=== PATIENT | male | born 1965 | race Caucasian/White ===

== ENCOUNTER 2016-12-06 08:38 | Emergency (ER) | payer MEDICARE ==
[~2016-12-06] VITALS: Ht 175.3 cm; Wt 102.1 kg
[~2016-12-06 08:38] MED LIST: CIPRO 500MG TA500 MG PO; MEDROL 4MG. DOSE4 MG PO
[2016-12-06] MEDS ORDERED: MEDROL 4MG. DOSE4 MG PO (09:09)
--- NOTE | 2016-12-06 09:10 | Emergency Room Report ---
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 N Clinical Suspician of Infection? N Mental Status: 1 - Regular (Normal Baseline) Sepsis Risk:Low Sepsis Risk Have you (or family members/close friends) recently traveled outside the [place]? N If Yes, where/when: Have you had exposure to infectious disease within the past month? N TB? Other? Specify: Left wrist pain since last night, does mowing. No other symptoms. 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 ALLERGIES Coded Allergies: Penicillins (12/06/16) Home Medications Active Scripts Methylprednisolone (Medrol Dose Radha) 4 MG PO UD #1 RADHA Prov: 08/21/08 Ciprofloxacin HCl (Cipro 500MG TAB) 500 MG PO BID 7 Days Prov: 08/21/08 History Medical History General CAD? No Angina: No [place]: No Hypertension? Yes Hyperlipidemia? No CHF? No DVT? No PE? No COPD? No Asthma? No Anemia? No GERD? No Gastric ulcers? No GI Bleed? No Hernia? No Thyroid Problems? No Hypothyroidism? No CVA? No Seizures? No Diabetes? No Renal Insuffiency? No End Stage Renal Disease? No UTI? No Stones? No GB Disease: No Nephritic Syndrome? No Asplenia? No Hepatitis? No Sickle Cell Disease? No Arthritis? Yes Migraines? No Cataracts? No Glaucoma? No MRSA? No HIV? No TB? No Anxiety? No Depression? No Cancer? No More? No Immunization Hx DT/Tetanus 1-4 YRS Surgical Hx Previous Surgery?N Social History Smoking Hx Smoker: Current Every Day Smoker Tobacco: Yes Type Cigarettes Packs/day < 1 Pack Alcohol Alcohol: Yes Review of Systems All Other Systems Reviewed and Negative Musculoskeletal see HPI Physical Exam Vital Signs Vital Signs Date Time Temp Pulse Resp B/P Pulse O2 O2 Flow FiO2 Ox Delivery Rate 12/06 0840 98.1 71 18 153/99 96 General Appearance normal appearance, WD/WN, no apparent distress Eye Exam - bilateral eye normal exam, bilateral eye PERRL, bilateral eye EOMI Respiratory Status No: respiratory distress. Cardiovascular no peripheral edema, normal peripheral pulses Extremities Left wrist pain on palpation with no evidence of trauma, primarily over medial aspect; no edema or redness; neg Tinel or Phalen's. FROM, fully sensate, well perfused digits with no discoloration or clubbing. No other joint involvement. Neurologic alert, normal exam, no motor/sensory deficits, oriented x 3 Skin intact, normal color, warm/dry Medical Decision Making LABS/Meds/Orders Pt receiving controlled substance in ED? No Departure Departure Time of Disposition 09 Disposition DC Home or Self Care(routine) Clinical Impression Primary Impression: Left wrist pain Condition STABLE Patient Instructions DI for Wrist Pain Additional Instructions Medrol, follow up with doctor of choice, list provided, 7-10 days for recheck. Tylenol as needed. Discharge Counseling Counseled pt/family regarding diagnosis, medications/RX, home care, follow up needs Prescriptions Current Visit Scripts Methylprednisolone (Medrol Dose Radha) 4 MG PO UD #1 RADHA TAKE DIRECTED ON PACKAGING ED Critical Care Critical Care No at 0909
[2016-12-06 09:43] VITALS: BP 145/86
--- OUTSIDE RECORDS SUMMARY | 2016-12-06 10:08 | External Medical Summary Rpt ---
Author Author , Organization [employer] Address Unknown Phone Unavailable Care Team Providers Care Tug Master Name Role Phone [facility] Unavailable Unavailable HOSPITAL, [facility], Unavailable Unavailable [facility], Unavailable Unavailable [facility] BAUTISTA GINO, BAUTISTA GINO Unavailable Unavailable TYLER T, TYLER T Unavailable Unavailable TYLER, T, TYLER, T Unavailable Unavailable THEODORE RHO, THEODORE Unavailable Unavailable RHO GURROLA NOLBERTO, GURROLA Unavailable Unavailable NOLBERTO [facility], Unavailable Unavailable [facility], Unavailable Unavailable [facility] GINO BAUTISTA MD Unavailable Unavailable CONSULTING SRV, GINO BAUTISTA MD CONSULTING SRV [facility], Unavailable Unavailable [facility], Unavailable Unavailable [facility] ELISEO, III BINH, Unavailable Unavailable ELISEO, III BINH [facility] Unavailable Unavailable SURGERY [facility], [facility] Unavailable [facility]available #493, [facility] #493 [facility] Unavailable Unavailable #493, [facility] # Unavailable Unavailable [id number], [facility] # [id number] [facility], WE[facility] G[facility] Unavailable Unavailable [facility], [facility] Unavailable Unavailable [facility], Unavailable Unavailable [facility] Purpose Continuity of Care Document - 04-06-2009 through 2016 Problems Code Diagnosis DOS Provider Status 22374 DIAB W/O 08-28-2010 [facility] COMP TYPE COMMUNITY II/UNS NOT HOSPITAL STATED UNCNTRL 80733 OTHER 08-28-2010 [facility] 26354 OBSTRUCTIVE 08-18-2010 PATIENT SLEEP AIDS INC APNEA 496 CHRONIC 08-13-2010 [facility] OBSTRUCTION HOSP NEC 89245 JAW PAIN 08-13-2010 [facility] 13411 NONSPECIFIC 08-13-2010 [facility] ABNORMAL [facility] ELECTROCARD HOSP IOGRAM 7962 ELEVATED BP 08-13-2010 [facility] READING [facility] WITHOUT DX HOSP HYPERTENSIO N V7283 OTHER 08-13-2010 [facility] SPECIFIED [facility] PRE-OPERATI HOSP VE EXAMINATION 5210 DENTAL 07-17-2010 THE IMPLANT CARIES & ORAL SURGERY C 5258 OTHER SPEC 07-17-2010 THE IMPLANT DISORDERS & ORAL TEETH&SUPPO SURGERY C RTING STRUCTURES 37600 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 55733 HYPOXEMIA 06-18-2010 [facility] V8534 BODY MASS 06-18-2010 [facility] 34.0-34.9 HOSPITAL ADULT 4011 ESSENTIAL 05-21-2010 GINO MICHELE KONG MD N, BENIGN CONSULTING SRV 2724 OTHER AND 05-13-2010 [facility] UNSPECIFIED HYPERLIPIDE AURA 81130 UNSPECIFIED 05-13-2010 [facility] CONJUNCTIVI TIS 4019 UNSPECIFIED 05-13-2010 [facility] ESSENTIAL HYPERTENSIO N V571 OTHER 05-02-2010 [facility] 68191 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 84767 SHORTNESS 05-01-2010 [facility] [place] [facility] 95029 ASTHMA, 04-28-2010 [facility] UNSPECIFIED STATUS 4928 OTHER 04-27-2010 [facility] EMPHYSEMA 7243 SCIATICA 04-27-2010 [facility] 7242 LUMBAGO 12-17-2009 [facility] 462 ACUTE 04-06-2009 [facility] 37123 FEVER 04-06-2009 [facility] Medications Na ND Rx Da Fi Fi Am Da Di Ph RX Ph St me C No te ll ll ou ys ag ar # ys at rm s nt no ma ic us Or Da si cy ia de te s n re d FL 68 04 04 0 30 30 WA 70 WE Ac UO 64 -0 -0 .0 L- 73 ST ti XE 50 5- 5- 00 MA 53 ve TI 13 20 20 RT 6 RI NE 05 11 11 CH 4 PH AR HC AR D L MA M 20 CY # MG 10 CA 04 PS 93 UL E QU 68 02 04 1 30 30 WA 70 WE Ac IN 18 -2 -0 .0 L- 67 ST ti AP 00 1- 4- 00 MA 58 ve RI 55 20 20 RT 8 RI L 80 11 11 CH 20 9 PH AR AR D MG MA M CY TA # BL ET 10 04 93 FL 68 03 03 0 7. 7 70 WE Ac UO 64 -2 -2 00 L- 72 ST ti XE 50 6- 6- 0 MA 24 ve TI 13 20 20 RT 0 RY NE 05 11 11 AN 4 PH B HC AR L MA 20 CY # MG 10 CA 04 PS 93 UL E FL 68 02 02 0 30 30 70 WE Ac UO 64 -2 -2 .0 L- 67 ST ti XE 50 1- 1- 00 MA 58 ve TI 13 20 20 RT 7 RI NE 05 11 11 CH 4 PH AR HC AR D L MA M 20 CY # MG 10 CA 04 PS 93 UL E QU 68 02 02 1 30 30 70 WE Ac IN 18 -2 -2 .0 L- 67 ST ti AP 00 1- 1- 00 MA 58 ve RI 55 20 20 RT 8 RI L 80 11 11 CH 20 9 PH AR AR D MG MA M CY TA # BL ET 10 04 93 00 02 02 0 24 3 WI 36 PE Ac 59 -0 -0 .0 LS 07 TE ti 10 3- 3- 00 ON 93 RS ve 34 20 20 ON [address] , 5 UG II I IN GI C LM AN P 00 02 02 0 24 3 WI 36 PE Ac 59 -0 -0 .0 LS 07 TE ti 10 3- 3- 00 ON 93 RS ve 34 20 20 ON [address] , 5 UG II I IN GI C LM AN P IB 53 01 01 0 30 8 WI 36 PE Ac UP 74 -2 -2 .0 LS 02 TE ti RO 60 8- 8- 00 ON 53 RS ve FE 46 20 20 ON N [address] , 60 5 UG II 0 I MG IN GI C LM TA AN BL P ET EN 60 01 01 0 30 5 HO 20 PE Ac DO 95 -2 -2 .0 ME 02 TE ti CE 10 8- 8- 00 TO 89 RS ve T 60 20 20 WN 8 ON 5- 28 11 11 , 32 5 PH II 5 AR I TA MA GI BL CY LM ET AN P FL 68 01 01 0 30 30 70 WE Ac UO 64 -1 -1 .0 L- 62 ST ti XE 50 8- 8- 00 MA 89 ve TI 13 20 20 RT 5 RI NE 05 11 11 CH 4 PH AR HC AR D L MA M 20 CY # MG 10 CA 04 PS 93 UL E 00 01 01 0 16 4 WI 35 MC Ac 59 -1 -1 .0 LS 90 CA ti 10 8- 8- 00 ON 02 UL ve 34 20 20 EY [address] 5 UG TH OR IN NB C ER RY AM AN DA 00 01 01 0 16 4 WI 35 MC Ac 59 -1 -1 .0 LS 90 CA ti 10 8- 8- 00 ON 02 UL ve 34 20 20 EY [address] -T 5 UG HO RN IN BE C RR Y AM AN DA FL 68 11 12 1 30 30 WA 70 WE Ac UO 64 -0 -1 .0 L- 54 ST ti XE 50 8- 7- 00 MA 17 ve TI 13 20 20 RT 2 RI NE 05 10 10 CH 4 PH AR HC AR D L MA M 20 CY # MG 10 CA 04 PS 93 UL E HY 16 11 11 0 20 5 WA [address] 71 -1 -1 .0 L- 54 LE ti OX 40 4- 4- 00 MA 89 ve YZ 08 20 20 RT 1 II IN 20 10 10 E 4 PH TH HC AR OM L MA 25 CY # MG 10 TA 04 BL 93 ET GE 61 11 11 0 5. 10 VA 70 DA Ac NT 31 -1 -1 00 L- 54 LE ti AM 40 4- 4- 0 MA 89 ve IC 63 20 20 RT 2 II IN 30 10 10 3 5 PH TH AR OM MG MA /M CY L # EY E 10 DR 04 OP 93 S 00 11 11 5 14 16 WA 70 WE Ac 59 -0 -0 .6 L- 54 ST ti 70 8- 8- 99 MA 16 ve 01 20 20 RT 9 RI 31 10 10 CH 4 PH AR AR D MA M CY # 10 04 93 FL 68 11 11 1 30 30 WA 70 WE Ac UO 64 -0 -0 .0 L- 54 ST ti XE 50 8- 8- 00 MA 17 ve TI 13 20 20 RT 2 RI NE 05 10 10 CH 4 PH AR HC AR D L MA M 20 CY # MG 10 CA 04 PS 93 UL E VE 00 10 11 00 18 16 WA 70 DA Ac NT 17 -1 -0 .0 L- 08 LE ti OL 30 8- 5- 00 MA 23 ve IN 68 20 20 RT 3 II 22 09 09 HF 0 PH TH A AR OM 90 MA CY MC G #4 IN 93 CORTEZ LE R CE 68 10 11 00 24 6 VA 70 DA Ac PH 18 -1 -0 .0 L- 08 LE ti AL 00 8- 5- 00 MA 23 ve EX 12 20 20 RT 2 II IN 20 09 09 1 PH TH 50 AR OM 0 MA MG CY CA #4 PS 93 UL E AZ 00 10 11 00 6. 5 WA 70 DA Ac IT 78 -1 -0 00 L- 08 LE ti HR 11 8- 5- 0 MA 23 ve OM 49 20 20 RT 7 II YC 66 09 09 IN 8 PH TH AR OM 25 MA 0 CY MG #4 TA 93 BL ET ME 00 10 11 00 21 6 WA 70 DA Ac TH 60 -1 -0 .0 L- 08 LE ti YL 34 8- 5- 00 MA 23 ve AL 59 20 20 RT 1 II ED 31 09 09 NI 5 PH TH SO AR OM LO MA NE CY 4 #4 MG 93 DO SE PK Procedures Procedure DOS Code Location Performer Comment HEMOGLOBI [address] ARIES A1C BASIC [address] CALCIUM TOTAL COLLECTIO 55146 [facility] V[facility]OUS 1 [facility] VENIPUNCT URE FILTER A7038 PATIENT PATIENT DISPBL 1 AIDS INC AIDS INC USED W/POS ARWAY PRESSURE DEVICE CUSHN A7032 PATIENT PATIENT NASAL 1 AIDS INC AIDS INC MASK INTERFACE REPLACEME NT ONLY EACH CONTINUOU E0601 PATIENT PATIENT S 1 AIDS INC AIDS INC POSITIVE AIRWAY PRESSURE DEVICE HEADGEAR A7035 PATIENT PATIENT USED 1 AIDS INC AIDS INC W/POSITIV E AIRWAY PRESSURE DEVICE NASL A7034 PATIENT PATIENT INTRFCE 1 AIDS INC AIDS INC POS ARWAY PRSS DEVC W/WO HEAD STRAP HUMDIFIR E0562 PATIENT PATIENT HEATED 1 AIDS INC AIDS INC USED W/POS ARWAY PRESSURE DEVICE TUBING A7037 PATIENT PATIENT USED WITH 1 AIDS INC AIDS INC POSITIVE AIRWAY PRESSURE DEVICE BLOOD 53059 [facility] COUNT 1 [facility] COMPLETE HOSP HOSP AUTOMATED ECG 44032 [facility] ROUTINE 1 [facility] SABIANISM ECG HOSP HOSP W/LEAST 12 LDS TRCG ONLY W/O I&R COLLECTIO 56918 [facility] N VENOUS 1 [facility] BLOOD HOSP HOSP VENIPUNCT URE FILTER A7038 PATIENT PATIENT DISPBL 1 AIDS INC AIDS INC USED W/POS ARWAY PRESSURE DEVICE CONTINUOU E0601 PATIENT PATIENT S 1 AIDS INC AIDS INC POSITIVE AIRWAY PRESSURE DEVICE DEEP D9220 THE JAYDE GOMES/ 1 IMPLANT & III BINH GENERAL ORAL ANESTHESI SURGERY C A-1ST 30 MINUTES ALVEOLOPL 85645 THE CHRISTY GOMES EACH 1 IMPLANT & III BINH QUADRANT ORAL SPECIFY SURGERY C ORTHOPANT 00871 THE THE OGRAM 1 IMPLANT & IMPLANT & ORAL ORAL SURGERY C SURGERY C POLYSOM 87259 GINO BAUTISTA BAUTISTA GNIO 6/>YRS 1 SLEEP CONSULTIN W/CPAP G SRV 4/> ADDL KALPANA ATTND CONTINUOU E0601 PATIENT PATIENT S 1 AIDS INC AIDS INC POSITIVE AIRWAY PRESSURE DEVICE POLYSOM 44694 [place] 6/>YRS 0 [facility] W/CPAP 4/> ADDL KALPANA ATTND BLOOD 01930 [place] GASES ANY 0 [facility] COMBINATI ON PH PCO2 PO2 CO2 HCO3 ARTERIAL 03838 [place] PUNCTURE 0 [facility] L BLOOD DX TUBING A7037 PATIENT PATIENT USED WITH 0 AIDS INC AIDS INC POSITIVE AIRWAY PRESSURE DEVICE HEADGEAR A7035 PATIENT PATIENT USED 0 AIDS INC AIDS INC W/POSITIV E AIRWAY PRESSURE DEVICE CONTINUOU E0601 PATIENT PATIENT S 0 AIDS INC AIDS INC POSITIVE AIRWAY PRESSURE DEVICE FILTER A7038 PATIENT PATIENT DISPBL 0 AIDS INC AIDS INC USED W/POS ARWAY PRESSURE DEVICE CUSHN A7032 PATIENT PATIENT NASAL 0 AIDS INC AIDS INC MASK INTERFACE REPLACEME NT ONLY EACH FULL FACE A7030 PATIENT PATIENT MASK 0 AIDS INC AIDS INC USED W/POS ARWAY PRESS DEVICE EA POLYSOM 39729 GINO BAUTISTA BAUTISTA GINO 6/>YRS 0 SLEEP CONSULTIN W/CPAP G SRV 4/> ADDL [place] ATTND POLYSOM 50424 [facility] 0 [facility] W/CPAP 4/> ADDL KAL[place]NA ATTND RADIOLOGI 13228 [facility] [place] [facility] EXAM 0 RADIOLOGY RHO CHEST 2 VIEWS FRONTAL&L ATERAL MRI 11085 [facility] [place] [facility] SPINAL 0 RADIOLOGY NOLBERTO CANAL LUMBAR W/O CONTRAST MATERIAL SPACR A4627 [facility] 0 PHARMACY PHARMACY OR W/WO #493 #493 MASK W/METRD DOSE INHAL ECG 35251 [facility] ROUTINE 0 ECG W/LEAST 12 LDS W/I&R PRESSURIZ 82552 [facility] ED/NONPRE 0 SSURIZED INHALATIO N TREATMENT HEPATIC 07373 MAN [facility] FUNCTION 0 CO [facility] COLLECTIO 47654 MAN [facility] N VENOUS 0 CO [facility] VENIPUNCT URE Encounters Encounter Start End Date Code Location Performer Type Date [facility] C[facility]TRAL - 1 1 [facility] [place] - 0 0 [facility] T OFFICE 35196 GINO BAUTISTA [facility] 0 MD T NEW 45 CONSULTIN MINUTES G SRV OFFICE 02893 [facility] 0 0 T VISIT 15 MINUTES EMERGENCY 36910 [facility] 0 0 EMERGENCY DEPARTMEN SERVICES T VISIT MODERATE SEVERITY HOSPITAL [place] - 0 0 [facility] T OFFICE 74062 [facility] 0 0 T NEW 30 MINUTES HOSPITAL MAN - 0 0 [facility] T EMERGENCY 47919 [facility], T 9 9 [facility] EMERGENCY T VISIT PHYS INC HIGH/URGE NT SEVERITY
--- OUTSIDE RECORDS SUMMARY | 2016-12-06 10:08 | External Medical Summary Rpt ---
Author Author , Organization [employer] Address Unknown Phone Unavailable Care Team Providers Care Seamer Elastic Band Name Role Phone [facility] Un[facility] Un[facility], Unavailable Unavailable [facility] BAUTISTA GINO, BAUTISTA GINO Unavailable Unavailable TYLER T, TYLER T Unavailable Unavailable TYLER, T, TYLER, T Unavailable Unavailable THEODORE RHO, THEODORE Unavailable Unavailable RHO GURROLA NOLBERTO, GURROLA Unavailable Unavailable NOLBERTO [facility], Unavailable Unavailable [facility], Unavailable Unavailable [facility] GINO BAUTISTA MD Unavailable Unavailable CONSULTING [...] PHARMACY #493 [facility] # Unavailable Unavailable [id number], [facility] # [id number] [facility], WEST GER[facility]IMO Unavailable Unavailable [facility], WE[facility] Unavailable Unavailable [facility], Unavailable Unavailable [facility] Purpose Continuity of Care Document - 04-06-2009 through 2016 Problems Code Diagnosis DOS Provider Status 12251 DIAB W/O 08-28-2010 [facility] COMP TYPE COMMUNITY II/UNS NOT HOSPITAL STATED UNCNTRL 58055 OTHER 08-28-2010 [facility] 04701 OBSTRUCTIVE 08-18-2010 PATIENT SLEEP AIDS INC APNEA 496 CHRONIC 08-13-2010 [facility] OBSTRUCTION HOSP NEC 68940 JAW PAIN 08-13-2010 [facility] 45660 NONSPECIFIC 08-13-2010 [facility] ABNORMAL [facility] ELECTROCARD HOSP IOGRAM 7962 ELEVATED BP 08-13-2010 [facility] READING [facility] WITHOUT DX HOSP HYPERTENSIO N V7283 OTHER 08-13-2010 [facility] SPECIFIED [facility] PRE-OPERATI HOSP VE EXAMINATION 5210 DENTAL 07-17-2010 THE IMPLANT CARIES & ORAL SURGERY C 5258 OTHER SPEC 07-17-2010 THE IMPLANT DISORDERS & ORAL TEETH&SUPPO SURGERY C RTING STRUCTURES 65443 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 83871 HYPOXEMIA 06-18-2010 [facility] V8534 [place] 06-18-2010 [facility] 34.0-34.9 HOSPITAL ADULT 4011 ESSENTIAL 05-21-2010 GINO MICHELE KONG MD N, BENIGN CONSULTING SRV 2724 OTHER AND 05-13-2010 [facility] UNSPECIFIED HYPERLIPIDE AURA 11735 UNSPECIFIED 05-13-2010 [facility] CONJUNCTIVI TIS 4019 UNSPECIFIED 05-13-2010 [facility] ESSENTIAL HYPERTENSIO N V571 OTHER 05-02-2010 [facility] 59323 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 10 [place] 70 DA Ac NT 31 -1 -1 [...] CE 68 10 11 00 24 6 [place] 70 DA Ac PH 18 -1 -0 [...] Procedure DOS Code Location Performer Comment HEMOGLOBI [address] ARIES A1C BASIC [address] CALCIUM TOTAL COLLECTIO 75755 [facility] VENOUS 1 [facility] VENIPUNCT URE FILTER A7038 PATIENT PATIENT DISPBL [...] AIDS INC POSITIVE AIRWAY PRESSURE DEVICE BLOOD 15419 [facility] COUNT 1 [facility] COMPLETE HOSP HOSP AUTOMATED ECG 95747 [facility] ROUTINE 1 [facility] ECG HOSP HOSP W/LEAST 12 LDS TRCG ONLY W/O I&R COLLECTIO 30890 [facility] N VENOUS 1 [facility] BLOOD HOSP HOSP VENIPUNCT URE FILTER A7038 PATIENT PATIENT DISPBL 1 AIDS INC AIDS INC USED W/POS ARWAY PRESSURE DEVICE CONTINUOU E0601 PATIENT PATIENT S 1 AIDS INC AIDS INC POSITIVE AIRWAY PRESSURE DEVICE DEEP D9220 THE JAYDE GOMES/ 1 IMPLANT & III BINH GENERAL ORAL ANESTHESI SURGERY C A-1ST 30 MINUTES ALVEOLOPL 66746 THE CHRISTY GOMES EACH 1 IMPLANT & III BINH QUADRANT ORAL SPECIFY SURGERY C ORTHOPANT 81484 THE THE OGRAM 1 IMPLANT & IMPLANT & ORAL ORAL SURGERY C SURGERY C POLYSOM 67283 GINO BAUTISTA BAUTISTA GINO 6/>YRS 1 SLEEP CONSULTIN W/CPAP G SRV 4/> ADDL KALPANA ATTND CONTINUOU E0601 PATIENT PATIENT S 1 AIDS INC AIDS INC POSITIVE AIRWAY PRESSURE DEVICE POLYSOM 46501 [place] 6/>YRS 0 [facility] W/CPAP 4/> ADDL K[place] ATTND BLOOD 07452 [place] GASES ANY 0 [facility] COMBINATI ON PH PCO2 PO2 CO2 HCO3 ARTERIAL 19033 [place] PUNCTURE 0 [facility] L BLOOD DX TUBING A7037 PATIENT PATIENT [...] USED W/POS ARWAY PRESS DEVICE EA POLYSOM 08439 GINO BAUTISTA BAUTISTA GINO 6/>YRS 0 SLEEP CONSULTIN W/CPAP G SRV 4/> ADDL [place] ATTND POLYSOM 04003 [facility]RS 0 [facility] W/CPAP 4/> ADDL [place] ATTND RADIOLOGI 44234 [facility] [place] [facility] EXAM 0 RADIOLOGY RHO CHEST 2 VIEWS FRONTAL&L ATERAL MRI 05255 [facility] [place] [facility] SPINAL 0 RADIOLOGY NOLBERTO CANAL LUMBAR W/O CONTRAST MATERIAL SPACR A4627 [facility]RESRV 0 PHARMACY PHARMACY OR W/WO #493 #493 MASK W/METRD DOSE INHAL ECG 74836 [facility] ROUTINE 0 ECG W/LEAST 12 LDS W/I&R PRESSURIZ 41580 [facility] ED/NONPRE 0 SSURIZED INHALATIO N TREATMENT HEPATIC 72043 MAN [facility] FUNCTION 0 CO [facility] COLLECTIO 55408 MAN [place] N VENOUS 0 CO [facility] VENIPUNCT URE Encounters Encounter Start End Date Code Location Performer Type Date [facility] CENTRAL - 1 1 [facility] [place] - 0 0 [facility] T OFFICE 65030 GINO BAUTISTA BAUTISTA G[facility] MD T NEW 45 CONSULTIN MINUTES G SRV OFFICE 21462 [facility] 0 0 T VISIT 15 MINUTES EMERGENCY 40144 [facility] 0 0 EMERGENCY DEPARTMEN SERVICES T VISIT MODERATE SEVERITY [facility]OSP[facility] [place] - 0 0 [facility] OFF[facility] 68003 [facility] 0 0 T NEW 30 MINUTES HOSPITAL [facility] - 0 0 [facility] T EMERGENCY 09891 [facility] 9 9 [facility] EMERGENCY T VISIT PHYS INC HIGH/URGE NT SEVERITY
--- OUTSIDE RECORDS SUMMARY | 2016-12-06 10:10 | External Medical Summary Rpt ---
Author Author , Organization [employer] Address Unknown Phone Unavailable Care Team Providers Care Post Form Remover Name Role Phone [facility] Unavailable Unavailable HOSPITAL, [facility], Unavailable Unavailable [facility], Unavailable Unavailable [facility] BAUTISTA GINO, BAUTISTA GINO Unavailable Unavailable TYLER, T, TYLER, T Unavailable Unavailable THEODORE RHO, THEODORE Unavailable Unavailable RHO GURROLA NOLBERTO, GURROLA Unavailable Unavailable NOLBERTO [facility], Unavailable Unavailable [facility], Unavailable Unavailable [facility] GINO MICHELE HAQ Unavailable Unavailable CONSULTING SRV, GINO BAUTISTA MD CONSULTING SRV [facility], Unavailable [facility]available [facility], Unavailable Unavailable [facility] BERNARDO GOMES, Unavailable Unavailable BERNARDO GOMES [facility] Unavailable Unavailable [facility], [facility] Unavailable Unavailable #493, [facility] Unavailable Unavailable #493, [facility] # Unavailable Unavailable [id number], [facility] # [id number] [facility] Unavailable Unavailable [facility] Unavailable Unavailable [facility], Unavailable Unavailable [facility] Purpose Continuity of Care Document - 04-06-2009 through 2016 Problems Code Diagnosis DOS Provider Status 50355 DIAB W/O 08-28-2010 [place] COMP TYPE COMMUNITY II/UNS NOT HOSPITAL STATED UNCNTRL 26299 OTHER 08-28-2010 [facility] 59472 OBSTRUCTIVE 08-18-2010 PAT[facility] SLEEP AIDS INC APNEA 496 CHRONIC 08-13-2010 [facility] OBSTRUCTION [facility]OS[facility] NEC 16702 JAW PAIN 08-13-2010 [facility] 51011 NONSPECIFIC 08-13-2010 [facility] AB[facility]AL [facility] ELECTROCARD [facility]OSP IOGRAM 7962 ELEVATED BP 08-13-2010 [facility] WITHOUT DX HOSP HYPERTENSIO N V7283 OTHER 08-13-2010 [facility] SPECIF[facility] PRE-OPERATI HOSP VE EXAMINATION 5210 DENTAL 07-17-2010 THE IMPLANT CARIES & ORAL SURGERY C 5258 OTHER SPEC 07-17-2010 THE IMPLANT DISORDERS & ORAL TEETH&SUPPO SURGERY C RTING STRUCTURES 28138 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 57765 HYPOXEMIA 06-18-2010 [facility] V8534 BODY MASS 06-18-2010 [facility] 34.0-34.9 HOSPITAL ADULT 4011 ESSENTIAL 05-21-2010 GINO MICHELE KONG MD N, BENIGN CONSULTING SRV 2724 OTHER AND 05-13-2010 [facility] UNSPECIFIED HYPERLIPIDE AURA 41660 UNSPECIFIED 05-13-2010 [facility] CONJUNCTIVI TIS 4019 UNSPECIFIED 05-13-2010 [facility] ESSENTIAL HYPERTENSIO N V571 OTHER 05-02-2010 [facility] 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 42076 SHORTNESS 05-01-2010 [facility] [place] [facility] 58047 ASTHMA, 04-28-2010 [facility] UNSPECIFIED STATUS 4928 OTHER 04-27-2010 [facility] EMPHYSEMA 7243 SCIATICA 04-27-2010 [facility] 7242 LUMBAGO 12-17-2009 [facility] 462 ACUTE 04-06-2009 [facility] 01574 FEVER 04-06-2009 [facility] Medications Na ND Rx Da Fi Fi Am Da Di Ph RX Ph St me C No te ll ll ou ys ag ar # ys at rm s nt no ma ic us Or Da si cy ia de te s n re d FL 68 04 04 0 30 30 70 WE Ac UO 64 -0 -0 .0 L- 73 ST ti XE 50 5- 5- 00 MA 53 ve TI 13 20 20 RT 6 RI NE 05 11 11 CH 4 PH AR HC AR D L MA M 20 CY # MG 10 CA 04 PS 93 UL E QU 68 02 04 1 30 30 70 WE Ac IN 18 -2 -0 [...] QU 68 02 02 1 30 30 WE Ac IN 18 -2 -2 .0 L- 67 ST ti AP 00 1 MA 58 ve RI 55 20 20 [...] 20 20 EY [address] GermaniaT 5 UG HO RN IN BE C [...] HY 16 11 11 0 [address] 71 -1 -1 .0 L- 54 LE ti OX 40 4- 4- 00 MA 89 ve YZ 08 20 20 RT 1 II IN 20 10 10 E 4 PH TH HC AR OM L MA 25 CY # MG 10 TA 04 BL 93 ET GE 61 11 11 0 5. 10 70 DA Ac NT 31 -1 -1 [...] CE 68 10 11 00 24 6 70 DA Ac PH 18 -1 -0 [...] 34 8- 5- 00 MA 23 ve HI 59 20 20 RT 1 II ED 31 09 09 NI 5 PH TH SO AR OM LO MA NE CY 4 #4 MG 93 DO SE PK Procedures Procedure DOS Code Location Performer Comment COLLECTIO 10136 [facility] VENOUS 1 [facility] VENIPUNCT URE HEMOGLOBI [address] ARIES A1C BASIC [address] [facility] METABOLIC [address] [place] [address] CALCIUM TOTAL HUMDIFIR E0562 PATIENT PATIENT HEATED 1 [facility] INC AIDS INC USED W/POS ARWAY PRESSURE DEVICE TUBING A7037 PATIENT PATIENT USED WITH 1 AIDS INC AIDS INC POSITIVE AIRWAY PRESSURE DEVICE CONTINUOU E0601 PATIENT PATIENT S 1 [facility] INC AIDS INC POSITIVE AIRWAY PRESSURE DEVICE CUSHN A7032 PATIENT PATIENT NASAL 1 [facility] AIDS INC MASK INTERFACE REPLACEME NT ONLY EACH FILTER A7038 PATIENT PATIENT DISPBL 1 [facility] INC USED W/POS ARWAY PRESSURE DEVICE NASL A7034 PATIENT PATIENT INTRFCE 1 [facility] AIDS INC POS ARWAY PRSS DEVC W/WO HEAD STRAP HEADGEAR A7035 PATIENT PATIENT USED 1 [facility] AIDS INC W/POSITIV E AIRWAY PRESSURE DEVICE COLLECTIO 53190 [facility] N VENOUS 1 [facility] B[facility]OD [facility]OS[facility] HOSP VENIPUNCT URE ECG 75391 [facility] ROUTINE 1 [facility] ECG HOSP HOSP W/LEAST 12 LDS TRCG ONLY W/O I&R BLOOD 29952 [facility] COUNT 1 [facility] COMPLETE HOSP HOSP AUTOMATED FILTER A7038 PATIENT PATIENT DISPBL 1 [facility] INC USED W/POS ARWAY PRESSURE DEVICE CONTINUOU E0601 PATIENT PATIENT S 1 AIDS INC AIDS INC POSITIVE AIRWAY PRESSURE DEVICE ORTHOPANT 54069 THE THE OGRAM 1 IMPLANT & IMPLANT & ORAL ORAL SURGERY C SURGERY C ALVEOLOPL 06964 THE CHRISTY GOMES EACH 1 IMPLANT & III BINH QUADRANT ORAL SPECIFY SURGERY C DEEP D9220 THE ELISEO SEDATION/ 1 IMPLANT & III BINH GENERAL ORAL ANESTHESI SURGERY C A-1ST 30 MINUTES POLYSOM 62550 GINO BAUTISTA BAUTISTA GINO 6/>YRS 1 SLEEP CONSULTIN W/CPAP G SRV 4/> ADDL KALPANA ATTND CONTINUOU E0601 PATIENT PATIENT S 1 AIDS INC AIDS INC POSITIVE AIRWAY PRESSURE DEVICE POLYSOM 95050 [place] 6/>YRS 0 [facility] W/CPAP 4/> ADDL [place] ATTND ARTERIAL 82789 [place] PUNCTURE [address] [facility] L BLOOD DX BLOOD 79903 [facility] 0 [facility] COMBINATI ON PH PCO2 PO2 CO2 HCO3 TUBING A7037 PATIENT PATIENT USED WITH 0 AIDS INC AIDS INC POSITIVE AIRWAY PRESSURE DEVICE CONTINUOU E0601 PATIENT PATIENT S 0 AIDS INC AIDS INC POSITIVE AIRWAY PRESSURE DEVICE HEADGEAR A7035 PATIENT PATIENT USED 0 AIDS INC AIDS INC W/POSITIV E AIRWAY PRESSURE DEVICE FULL FACE A7030 PATIENT PATIENT MASK 0 [facility] INC AIDS INC USED W/POS ARWAY PRESS DEVICE EA CUSHN A7032 PATIENT PATIENT NASAL 0 [facility] INC AIDS INC MASK INTERFACE REPLACEME NT ONLY EACH FILTER A7038 PATIENT PATIENT DISPBL 0 [facility] AIDS INC USED W/POS ARWAY PRESSURE DEVICE POLYSOM 40539 GINO BAUTISTA BAUTISTA GINO 6/>YRS 0 SLEEP CONSULTIN W/CPAP G SRV 4/> ADDL [place]AL[place] ATTND POLYSOM 56496 [place] 6/>YRS 0 [facility] W/CPAP 4/> ADDL [place]AL[place] ATTND RADIOLOGI 47892 [facility] EXAM 0 [facility]IOLOGY RHO CHEST 2 VIEWS FRONTAL&L ATERAL MRI 35407 [facility] [place] [facility] SPINAL 0 [facility]IOLOGY NOLBERTO CANAL LUMBAR W/O CONTRAST MATERIAL SPACR A4627 [facility] 0 PHARMACY PHARMACY OR W/WO #493 #493 MASK W/METRD DOSE INHAL ECG 62844 [facility] ROUTINE 0 ECG W/LEAST 12 LDS W/I&R PRESSURIZ 36907 [facility] ED/NONPRE 0 SSURIZED INHALATIO N TREATMENT HEPATIC 64967 MAN [facility] FUNCTION 0 CO CO [facility] COLLECTIO 50342 MAN [facility] N VENOUS 0 CO [facility] VENIPUNCT URE Encounters Encounter Start End Date Code Location Performer Type Date [facility]OSPITAL [place] - 1 1 [facility] CENTRAL [facility] 1 [facility] [place] - 0 0 [facility] T OFFICE 57667 GINO BAUTISTA BAUTISTA GINO OUTPATIEN 0 0 MD T NEW 45 CONSULTIN MINUTES G SRV OFFICE 51471 [facility] OUTPATIEN 0 0 T VISIT 15 MINUTES [facility]OSP[facility] [place] - 0 0 [facility] T EMERGENCY 81340 [place] 0 0 [facility] T VISIT MODERATE SEVERITY HOSPITAL [place] - 0 0 [facility] T OFFICE 73200 [facility] T NEW 30 [facility]ES HOSP[facility] MAN - 0 0 [facility] T EMERGENCY 00494 [facility] 9 9 [facility]ERGENCY T VISIT PHYS INC HIGH/URGE NT SEVERITY
--- OUTSIDE RECORDS SUMMARY | 2016-12-06 10:10 | External Medical Summary Rpt ---
Author Author , Organization [employer] Address Unknown Phone Unavailable Purpose Continuity of Care Document - 01-02-2013 through 2016 Immunization Name Date Route CVX Reacti Commen Provid Is Given on t er Refuse d Tdap, Histor H109 No Adsorb 2012 ical ed Inform ation - Source Unspec ified
--- OUTSIDE RECORDS SUMMARY | 2016-12-06 10:10 | External Medical Summary Rpt ---
Author Author , Organization [employer] Address Unknown Phone Unavailable Care Team Providers Care Candy Cutter Machine Name Role Phone [facility] Unavailable Unavailable HOSPITAL, [facility] Unavailable Unavailable [facility], Unavailable Unavailable [facility] BAUTISTA GINO, BAUTISTA GINO Unavailable Unavailable TYLER, T, TYLER, T Unavailable Unavailable THEODORE RHO, THEODORE Unavailable Unavailable RHO GURROLA NOLBERTO, GURROLA Unavailable Unavailable NOLBERTO [facility], Unavailable Unavailable [facility], Unavailable Unavailable [facility] GINO MICHELE HAQ Unavailable Unavailable CONSULTING SRV, [...] PHARMACY #493 [facility] # Unavailable Unavailable [id number], [facility] # [id number] [facility], [facility] Unavailable Unavailable [facility] Unavailable Unavailable [facility], Unavailable Unavailable [facility] Purpose Continuity of Care Document - 04-06-2009 through 2016 Problems Code Diagnosis DOS Provider Status 76300 DIAB W/O 08-28-2010 [place] COMP TYPE COMMUNITY II/UNS NOT HOSPITAL STATED UNCNTRL 02346 OTHER 08-28-2010 [facility] 59966 OBSTRUCTIVE 08-18-2010 PATIENT SLEEP AIDS INC APNEA 496 CHRONIC 08-13-2010 [facility] OBSTRUCTION HOSP NEC 77851 JAW PAIN 08-13-2010 [facility] 37837 NONSPECIFIC 08-13-2010 [facility] ABNORMAL [facility] ELECTROCARD HOSP IOGRAM 7962 ELEVATED BP 08-13-2010 [facility] WITHOUT DX HOSP HYPERTENSIO N V7283 OTHER 08-13-2010 [facility] SPECIFIED [facility] PRE-OPERATI HOSP VE EXAMINATION 5210 DENTAL 07-17-2010 THE IMPLANT CARIES & ORAL SURGERY C 5258 OTHER SPEC 07-17-2010 THE IMPLANT DISORDERS & ORAL TEETH&SUPPO SURGERY C RTING STRUCTURES 27198 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 75305 HYPOXEMIA 06-18-2010 [facility] V8534 BODY MASS 06-18-2010 [facility] 34.0-34.9 HOSPITAL ADULT 4011 ESSENTIAL 05-21-2010 GINO MICHELE KONG MD N, BENIGN CONSULTING SRV 2724 OTHER AND 05-13-2010 [facility] UNSPECIFIED HYPERLIPIDE AURA 62665 UNSPECIFIED 05-13-2010 [facility] CONJUNCTIVI TIS 4019 UNSPECIFIED 05-13-2010 [facility] ESSENTIAL HYPERTENSIO N V571 OTHER 05-02-2010 [facility] 90775 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 88547 SHORTNESS 05-01-2010 [facility] 11034 ASTHMA, 04-28-2010 [facility]493 UNSPECIFIED STATUS 4928 OTHER 04-27-2010 [facility] EMPHYSEMA 7243 SCIATICA 04-27-2010 [facility] 7242 LUMBAGO 12-17-2009 [facility] 462 ACUTE 04-06-2009 [facility] 54180 FEVER 04-06-2009 [facility] UNSPEC[facility] N EMERGENCY PHYS [...] 34 8- 5- 00 MA 23 ve MO 59 20 20 RT 1 II ED 31 09 09 NI 5 PH TH SO AR OM LO MA NE CY 4 #4 MG 93 DO SE PK Procedures Procedure DOS Code Location Performer Comment COLLECTIO 94353 [facility] VENOUS 1 [facility] VENIPUNCT URE HEMOGLOBI [address] ARIES A1C BASIC [address]66[address] [facility] METABOLIC [address] [place] [address] CALCIUM TOTAL HUMDIFIR E0562 PATIENT PATIENT HEATED [...] INC W/POSITIV E AIRWAY PRESSURE DEVICE COLLECTIO 63346 [facility] N VENOUS 1 [facility] BLOOD HOSP HOSP VENIPUNCT URE ECG 36177 [facility] ROUTINE 1 [facility] ECG HOSP HOSP W/LEAST 12 LDS TRCG ONLY W/O I&R BLOOD 66283 [facility] COUNT 1 [facility] COMPLETE HOSP HOSP AUTOMATED FILTER A7038 PATIENT PATIENT DISPBL 1 AIDS INC AIDS INC USED W/POS ARWAY PRESSURE DEVICE CONTINUOU E0601 PATIENT PATIENT S 1 AIDS INC AIDS INC POSITIVE AIRWAY PRESSURE DEVICE ORTHOPANT 91879 THE THE OGRAM 1 IMPLANT & IMPLANT & ORAL ORAL SURGERY C SURGERY C ALVEOLOPL 68323 THE CHRISTY GOMES EACH 1 IMPLANT & III BINH QUADRANT ORAL SPECIFY SURGERY C DEEP D9220 THE ELISEO SEDATION/ 1 IMPLANT & III BINH GENERAL ORAL ANESTHESI SURGERY C A-1ST 30 MINUTES POLYSOM 47729 GINO BAUTISTA BAUTISTA GINO 6/>YRS 1 SLEEP CONSULTIN W/CPAP G SRV 4/> ADDL [place] ATTND CONTINUOU E0601 PATIENT PATIENT S 1 AIDS INC AIDS INC POSITIVE AIRWAY PRESSURE DEVICE POLYSOM 63019 [place] 6/>YRS 0 [facility] W/CPAP 4/> ADDL [place] ATTND ARTERIAL 48951 [place] PUNCTURE 0 [facility] B[facility] COMBINAT[facility] ON PH PCO2 PO2 CO2 [...] INC USED W/POS ARWAY PRESSURE DEVICE POLYSOM 33239 GINO BAUTISTA BAUTISTA GINO 6/>YRS 0 SLEEP CONSULTIN W/CPAP G SRV 4/> ADDL [place] ATTND POLYSOM 28578 [place] 6/>YRS 0 [facility] W/CPAP 4/> ADDL [place] ATTND RADIOLOGI 78199 [facility] EXAM 0 RADIOLOGY RHO CHEST 2 VIEWS FRONTAL&L ATERAL MRI 34459 [facility] [place] [facility] SPINAL 0 RADIOLOG[facility] N[facility]BERTO CANAL LUMBAR W/O CONTRAST MATERIAL SPACR A4627 [facility] PHARMACY PHARMACY OR W/WO #493 #493 MASK W/METRD DOSE INHAL ECG 26294 [facility] ROUTINE 0 ECG W/LEAST 12 LDS W/I&R PRESSURIZ 74864 [facility] ED/NONPRE 0 SSURIZED INHALATIO N TREATMENT HEPATIC 05698 MAN CON[facility] FUNCTION 0 CO CO [facility] COLLECTIO 15215 [facility] [place] N VENOUS 0 CO [facility] VENIPUNCT URE Encounters Encounter Start End Date Code Location Performer Type Date HOSPITAL [place] - 1 1 [facility] H[facility]PITAL [facility] 1 [facility] [place] - 0 0 [facility] T OFFICE 38814 GINO BAUTISTA BAUTISTA GINO OUTPATIEN 0 0 MD T NEW 45 CONSULTIN MINUTES G SRV OFFICE 01031 [facility] OUTPATIEN 0 0 T VISIT 15 MINUTES [facility] [place] - 0 0 [facility] T EMERGENCY 77091 [place] 0 0 [facility] T VISIT MODERATE [facility]VERITY [facility]OSP[facility] [place] - 0 0 [facility] T OFFICE 12724 [facility] T NEW 30 MIN[facility]ES HOSP[facility] MAN - 0 0 [facility] T EMERGENCY 27494 [facility] 9 9 [facility] EMERGENCY T VISIT PHYS INC HIGH/URGE NT SEVERITY
== END 2016-12-06 09:25 | disposition home or self-care (01) ==
LOC: ER 08:38
DX: M79.642 Pain in left hand (principal); I10 Essential (primary) hypertension; Z72.0 Tobacco use